=== PATIENT | female | born 1955 | race Caucasian/White ===

== ENCOUNTER 2020-05-18 21:14 | Outpatient (REF) | payer BC, SELFPAY ==
[2020-05-18 20:23] LABS: ALT 11 U/L (14-59); AST 19 U/L (15-37); Calculated LDL 76 mg/dL (<100); Cholesterol 143 mg/dL (<200); HDL Cholesterol 47 mg/dL (40-60); Triglyceride 100 mg/dL (<150)
== END 2020-05-18 21:34 ==
LOC: NCHCN 21:14
PROVIDERS: PCP Internal Medicine; Visit Provider Nurse Practitioner Family
DX: E78.5 Hyperlipidemia, unspecified (principal)
CPT/HCPCS: 80061; 84450; 84460

== ENCOUNTER 2021-01-16 20:09 | Outpatient (REF) | payer BC, SELFPAY ==
[2021-01-16 19:25] LABS: Anion Gap 8.6 mmol/L (3-11); BUN 9 mg/dL (7-18); CO2 27.4 mmol/L (21.0-32.0); Calcium 8.5 mg/dL (8.5-10.1); Chloride 107 mmol/L (98-107); Estimated GFR 55.47 (mL/min/1.73m2); Glucose 119 mg/dL (74-106); Potassium 4.1 mmol/L (3.5-5.1); Sodium 143 mmol/L (136-145)
== END 2021-01-16 20:10 | disposition home or self-care (01) ==
LOC: NCHCN 20:09
PROVIDERS: PCP Internal Medicine; Visit Provider Nurse Practitioner Family
DX: Z02.89 Encounter for other administrative examinations (principal); M17.0 Bilateral primary osteoarthritis of knee; G89.29 Other chronic pain
CPT/HCPCS: 80048

== ENCOUNTER 2022-04-02 15:22 | Outpatient (REF) | payer MEDICARE, SELFPAY ==
[2022-04-02 19:43] LABS: ALT 17 U/L (14-59); AST 19 U/L (15-37); Albumin 3.6 g/dL (3.4-5.0); Alkaline Phosphatase 82 U/L (46-116); Anion Gap 7.9 mmol/L (3-11); BUN 15 mg/dL (7-18); Bilirubin, Total 0.3 mg/dL (0.2-1.0); CO2 27.1 mmol/L (21.0-32.0); CREATININE 0.9 mg/dL (0.55-1.02); Calcium 8.7 mg/dL (8.5-10.1); Chloride 105 mmol/L (98-107); Estimated GFR 70.07 (mL/min/1.73m2); Glucose 91 mg/dL (74-106); Sodium 140 mmol/L (136-145); Total Protein 7.2 g/dL (6.4-8.2)
== END 2022-04-02 15:23 | disposition home or self-care (01) ==
LOC: NCHCN 15:22
PROVIDERS: PCP Internal Medicine; Visit Provider Nurse Practitioner Family
DX: E78.5 Hyperlipidemia, unspecified (principal)
CPT/HCPCS: 80053

== ENCOUNTER 2022-11-04 09:55 | Day surgery (SDC) | payer MEDICARE, SELFPAY ==
--- NOTE | 2022-11-04 07:02 | W.PREOPHP ---
Assessment and Plan Assessment and plan (1) Posterior subcapsular age-related cataract, right eye: Status: Acute Assessment and plan: Assessment: Dense nuclear/posterior subcapsular cataract, right eye. Plan: Cataract extraction with lens implantation of the right eye. (2) Nuclear age-related cataract, right eye: Status: Acute Assessment and plan: Assessment: Dense nuclear/posterior subcapsular cataract, right eye. Plan: Cataract extraction with lens implantation of the right eye. History of Present Illness History of Present Illness Chief Complaint: Progressive decreased vision, right eye Narrative: The patient is a 65-year-old lady with history of progressive decreased vision in her right thigh, much worse than the left. She notes decreased vision at both distance and near. On examination she was noted to have a dense nuclear/posterior subcapsular cataract in the right eye with counting fingers vision. The option of cataract surgery was offered to the patient and she wished to proceed. Review of Systems All systems reviewed & are unremarkable except as noted in HPI and below PFSH All Active Problems Nuclear age-related cataract, right eye (Acute) Posterior subcapsular age-related cataract, right eye (Acute) Medical History Bilateral cataracts Chronic knee pain COPD (chronic obstructive pulmonary disease) Depression HLD (hyperlipidemia) Smoker Surgical History (Updated 11/04/22 @ 10:35 by Dulce Lo) History of dacryocystorhinostomy [facility] Social History Smoking/Tobacco Use Status: Current every day Tobacco Type: cigarettes Tobacco: How many years used: 50 Smoking risk assessment performed?: Yes Alcohol Intake: never Drug use: Never Substance use type: does not use Do you feel safe at home: Yes Do you feel safe in your relationship?: Yes Meds Allergies and Home Medications Allergies Allergy/AdvReac Type Severity Reaction Status Date / Time No Known Allergies Allergy Unverified 11/04/22 10:36 Home Medications Medication Instructions Recorded Confirmed Type atorvastatin 10 mg tablet 10 mg PO HS 04/11/22 11/04/22 History citalopram 40 mg tablet 40 mg PO HS 04/11/22 11/04/22 History ibuprofen 600 mg tablet 600 mg PO DAILY PRN 04/11/22 11/04/22 History tiotropium bromide 18 mcg capsule 1 cap inhalation DAILY 04/11/22 11/04/22 History with inhalation device (Spiriva with HandiHaler) hydrocodone 5 mg-acetaminophen 325 1 tab PO DIRECTED PRN 11/01/22 11/04/22 History mg tablet Exam Eyes Other: Most recent ocular examination revealed uncorrected visual acuity of counting fingers OD, 20/50 OS. Extraocular motility is normal. Slit-lamp examination reveals pupils dilating only to 3.5 mm. There is a dense nuclear/posterior subcapsular cataract in the right eye with no view of the retina. In the left eye there is a moderate nuclear and posterior subcapsular cataract. Funduscopic examination of the left eye reveals disc cupping of 0.3 with normal vessels, macula, peripheral retina and vitreous. Resp Auscultation: clear to auscultation bilaterally Cardio Rate: regular rate Rhythm: regular rhythm
[2022-11-04 09:42] VITALS: BMI 35.4
--- NOTE | 2022-11-04 09:42 | W.ANESPRE ---
General Info Date of Service Date Performed: 11/04/22 Height: 5 ft 2 in Weight: 87.997 kg Body Mass Index (BMI): 35.4 Surgical Procedure: Operation Date: 11/04/22 11:25 Proposed Procedure Side Surgeon p Cataract Extraction with IOL Implant Right Daren Alexis MD Meds Allergies and Home Medications Allergies Allergy/AdvReac Type Severity Reaction Status Date / Time No Known Allergies Allergy Unverified 09/27/22 08:55 Home Medication Medication Instructions Recorded atorvastatin 10 mg tablet 10 mg PO DAILY 04/11/22 citalopram 40 mg tablet 40 mg PO DAILY 04/11/22 ibuprofen 600 mg tablet 600 mg PO DAILY PRN 04/11/22 tiotropium bromide 18 mcg capsule 1 cap inhalation DAILY 04/11/22 with inhalation device (Spiriva with HandiHaler) hydrocodone 5 mg-acetaminophen 325 1 tab PO DIRECTED 11/01/22 mg tablet Current Visit Medications: Current Medications Generic Name Dose Route Start Last Admin Trade Name Freq PRN Reason Stop Dose Admin Acetaminophen 1,000 mg 11/04/22 06:00 Acetaminophen 500 Mg Tab PO Q4H PRN PRN Balanced Salt Solution 500 ml 11/04/22 06:00 Balanced Salt Soln.-Plus 500 Ml Bag OP DIRECTED [facility] Miscellaneous Medication 0 ml 11/04/22 06:00 Prednisolone 1%, Moxifloxacin 0.5%, Nepafenac 0.1% 5ml Btl OD DIRECTED [facility] Miscellaneous Medication 0 ml 11/04/22 06:00 Tropicam./Phenyleph. (1/2.5%) 5 Ml Btl OD DIRECTED [facility] Tetracaine HCl 0 ml 11/04/22 06:00 Tetracaine 0.5% 4 Ml Btl OD DIRECTED [facility] PFSH Active Problems Active Problems: Problem Status Onset Code Posterior subcapsular age-related cataract, right eye H25.041 Nuclear age-related cataract, right eye H25.11 Medical History Medical History Bilateral cataracts Chronic knee pain COPD (chronic obstructive pulmonary disease) Depression HLD (hyperlipidemia) Smoker Tobacco Smoking/Tobacco Use Status: Current every day Tobacco Type: cigarettes Alcohol Alcohol Intake: never Substance Use Substance use: Never Substance use type: does not use Vital Signs and Lab Results Lab Results Blood Type / Crossmatch: No Data to Display Complete Blood Count: No Data to Display Complete Metabolic Panel: No Data to Display Liver Function Panel: No Data to Display Coagulation Panel: No Data to Display Cardiac Panel: No Data to Display Arterial Blood Gas: No Data to Display Venous Blood Gas: No Data to Display Pancreas Panel: No Data to Display Thyroid Panel: No Data to Display Infectious Disease: No Data to Display Blood Cultures: No Data to Display Toxicology Panel: No Data to Display Anesthesia Assessment and Plan Anesthesia History Personal History: No History of Anesthesia Complications Family History: No Family History of Anesthesia Complications Exercise Tolerance Exercise Tolerance: Metabolic Equivalents>4 Pertinent Negatives Pertinent Negatives: No Symptoms of GERD, No Major Cardiovascular Symptoms or Complaints and No History of CVA/TIA Cardiac & Pulmonary Exam Cardiac Exam: Normal S1/S2 Heart Sounds Pulmonary Exam: Clear Bilateral Breath Sounds Implantable Cardiac Device Does patient have a Pacemaker or an ICD?: No Airway Exam Known Difficult Airway: No Mallampati Class: 2 Mouth Opening: Normal (> 3cm) Thyromental Distance: Greater than 3 cm Neck Range of Motion: Full ROM Neck Circumference: Normal Teeth Condition: Generalized Poor Dentition, Loose or Chipped and Dental Caries ASA Classification ASA Score: ASA 3 Emergency Case?: No NPO Status NPO Status: Full Stomach (Patient drinking water up until an hour ago per patient. ) Anesthesia Plan Resuscitation Status: Full Code Anesthesia Technique: MAC Anesthesia Airway Planned: Natural Airway Monitors Used: Standard Monitors Preoperative Comments:: Sig PMhx: COPD, current smoker Plan: Patient local as was sipping water up until arrival/an hour ago. Potential for PIV placement and IV versed if patient beyond two hour window and no concerns.
[2022-11-04 10:00] VITALS: BP 116/72; PULSE 72; RESP 16; TEMP 36.4; O2SAT 97
[2022-11-04] MEDS: Tropicam./Phenyleph. (1/2.5%) 5 ML BTL OD ×3 (10:33→10:45)
[2022-11-04] MEDS: Tetracaine 0.5% 4 ML BTL OD (11:00)
[2022-11-04] MEDS: Trypan Blue 0.06% 0.5 ML SYR (11:07)
[2022-11-04] MEDS: Balanced Salt Soln.-PLUS 500 ML BAG OP (11:07)
[2022-11-04] MEDS: Duovisc Viscoelastic System EACH 1 EACH (11:08)
[2022-11-04] MEDS: Lidocaine 1% Pres-Free 5 ML VIAL (11:09)
[2022-11-04] MEDS: Phenylephrine/Lidocaine (15/10) MG/ML 1 ML VIAL (11:09)
[2022-11-04] MEDS: Povidone-Iodine Ophth 30 ML BTL (11:10)
[2022-11-04 11:40] VITALS: BP 121/65; PULSE 57; RESP 16; TEMP 36.6; O2SAT 95
--- NOTE | 2022-11-04 11:41 | W.PM.DSUDISC ---
Date of service: 11/04/22 Time of Service: 11:41 Discharge Plan Disposition Patient Disposition: Home Discharge Details Attending Provider: Daren Alexis Primary Care Provider: Shaun Hensley Meds and New Rx's Prescriptions: No Action citalopram 40 mg Tablet 40 mg PO HS atorvastatin 10 mg Tablet 10 mg PO HS ibuprofen 600 mg Tablet 600 mg PO DAILY PRN Spiriva with HandiHaler 18 mcg Capsule, W/Inhalation Device 1 cap INHALATION DAILY hydrocodone-acetaminophen 5-325 mg Tablet 1 tab PO DIRECTED PRN Discharge Instructions Stand Alone Forms: Post-op Topical Cataract, Allie Martin (DSU) Discharge Orders Discharge Orders: Discharge Order (Routine); Ordered 11/04/22 Ordered By: Daren Alexis DS: Diagnosis Discharge Diagnosis (1) Posterior subcapsular age-related cataract, right eye: Status: Resolved (2) Nuclear age-related cataract, right eye: Status: Resolved
--- NOTE | 2022-11-04 11:44 | W.PM.OP ---
Date of service: 11/04/22 Time of Service: 11:44 Operative Note Operative Note DATE OF PROCEDURE: 11/04/22 PRE-OP DIAGNOSIS: Dense nuclear/posterior subcapsular cataract, right eye Poorly dilating pupil, right eye Absent red reflex, right eye PROCEDURE: Cataract extraction using phacoemulsification with intraocular lens implant, left eye, with pupillary dilation using Malyugin Ring and capsular staining using Vision Blue SURGEON: Daren Alexis ANESTHESIA TYPE: Local By Surgeon and MAC Refer to Anesthesia Record ESTIMATED BLOOD LOSS: 0 PATHOLOGY: none sent COMPLICATIONS: None Patient was transported to: same day Patient's condition: stable Implants: Babak [employer] Babak [employer] Tecnis Eyhance DIB00 Indications: Progressive decreased vision due to cataract, left eye Procedure Description: CATARACT SURGERY OPERATIVE REPORT PREOPERATIVE DIAGNOSIS: 1. Dense nuclear/posterior subcapsular cataract, left eye 2. Poorly dilating pupil, left eye 3. Poor red reflex, left eye POSTOPERATIVE DIAGNOSIS: Same OPERATION: 1. Cataract extraction using phacoemulsification with posterior chamber intraocular lens implant, left eye. 2. Pupillary dilation and iris stabilization using Malyugin Ring 3. Capsular staining with VIsion Blue IOL: IOL Inspector And Sorter/Model: Babak & Babak / JADA Tecnis [id number] IOL Power: + 19.5 diopters IOL Serial Number: [id number] Optic Diameter: 6.0mm Haptic/Overall Diameter: 13.0mm PHACO INFO: Enio Centurion Vision System with OZil and Active Fluidics Cumulative Dispersed Energy (CDE): 34.21 seconds SURGEON: Daren Alexis MD, GRACIELA ANESTHESIA: Monitored Anesthesia Care (MAC), with local sub-tenon's anesthetic infiltration COMPLICATIONS: None SPECIMENS: None INDICATIONS FOR PROCEDURE: The patient is a 66-year-old lady with history of diminished visual acuity in her right eye secondary to the development of dense nuclear/posterior subcapsular cataract. She was seen in October 2021 with counting fingers vision in the right eye. She now presents for cataract surgery in the right eye. See office notes for detailed information. PROCEDURE: The correct surgical eye was identified and marked as the left eye and the pupil was dilated in the preoperative area using mydriatics, cycloplegics, and NSAIDS (except in aspirin allergic patients). The dilated pupil size was 3.5 mm. The patient was brought to the operating room where cardiopulmonary monitoring was instituted and surgical time-out was performed, confirming the correct operative eye and IOL power. Topical anesthesia was administered and ophthalmic povidone-iodine 5% was instilled into the conjunctival fornices. Lidocaine gel was applied to the cornea and the prince-ocular area was prepped with Betadine 10% solution and draped in the usual sterile fashion for intraocular surgery, including an aperture drape. A Tegaderm transparent film dressing was cut in half and used to cover the lashes and lid margins. Care was taken to sequester the lashes and lid margins under the Tegaderm dressing. A lid speculum was placed between the lids of the operative eye and the operating microscope was maneuvered into position. Michelle scissors were then used to make a conjunctival buttonhole approximately 6mm posterior to the limbus in the inferonasal quadrant. Blunt dissection was carried out to expose bare sclera, and a blunt-tipped sub-tenon?s anesthesia cannula was introduced and passed posteriorly along the globe where non-preserved plain lidocaine was injected into posterior sub-Tenon?s space. A sideport knife was used to make a paracentesis port superiorly/superiortemporally. Intraocular phenylephrine/lidocaine was injected into the anterior chamber. . The anterior chamber was then filled with Provisc viscoelastic. A 2.6mm keratome knife was used to create a half-thickness groove at the limbus and then to construct a three-plane near-clear corneal tunnel extending 2.0mm into clear cornea temporally. A 6.25 mm Malyugin Ring was then inserted into the pupillary space and engaged with the Kuglen hook. The Provisc was then removed from the anterior chamber using irrigation/aspiration. VisionBlue was then injected into the anterior chamber and allowed to sit for 20 to 30 seconds, after which it was irrigated out with balanced salt solution. A flap was raised on the anterior capsule and capsulorhexis forceps were used to complete a continuous curvilinear capsulorhexis of 5.0 mm. The eye had to be fixated due to constant eye movement. Balanced salt solution was then used to perform cortical cleaving hydrodissection and nuclear hydrodelineation until the lens could be freely rotated within the capsular bag. The lens nucleus was then disassembled and removed within the capsular bag and iris plane using phacoemulsification. A deep central trench was sculpted into the central nucleus, then rotated 180 degrees in the trench lengthened. The nucleus was cracked into 2 halves, and then each have chopped into smaller fragments. Additional Viscoat was used intermittently to protect the corneal endothelium. Residual cortical material was removed using the 45-degree angled silicone I/A tip with 0.3mm port. The posterior capsule was carefully polished to remove as much residual lens epithelial cells as safely possible. The capsular bag was then inflated and the anterior chamber deepened with viscoelastic. The lens implant described above was inserted into the capsular bag using the [employer] simplicity injector. A Kuglen hook was used to dial the IOL into position. The Malyugin Ring was removed in the reverse order of its insertion. Residual viscoelastic was then removed first from posterior to the IOL, then from the anterior chamber using the I/A handpiece. The lens implant was noted to center nicely within the capsular bag. The incisions were stromally hydrated, and the anterior chamber was reformed using BSS. Then 0.5cc of moxifloxacin 1.0mg/ml were injected into the capsular bag and anterior chamber. The incisions were checked with a Weck spear and found to be secure. Several drops of ophthalmic povidone-iodine 5% were then applied to the eye followed by two drops of Imprimis combination prednisolone/moxifloxacin/nepafenac solution. The drapes were removed and a clear plastic protective eye shield was placed over the eye. The patient was then returned to Same Day Surgery in stable condition.
--- NOTE | 2022-11-04 11:46 | W.ANESPOSTOP ---
Postoperative Evaluation Date, Time and Location Date Performed: 11/04/22 Time Performed: 11:46 Patient Location: Day Surgery Unit Vital Signs Most Recent Imported Vital Signs: Most Recent Vital Signs Temp Pulse Resp BP Pulse Ox 36.4 C L 72 16 116/72 97 11/04/22 10:00 11/04/22 10:00 11/04/22 10:00 11/04/22 10:00 11/04/22 10:00 Pain Score Most Recent Pain Score: Most Recent Pain Score Pain Level 0 11/04/22 10:00 Assessment Mental Status: Awake (Alert & Oriented to Patient Baseline) Airway and Respiratory Function: Patent airway with normal (patient baseline) respiratory exam Cardiovascular Function: Hemodynamically Stable Hydration Status: Adequately Hydrated Nausea & Vomiting: No Nausea or Vomiting Pain: Pt. Denies Any Pain Peripheral Nerve Block: Other (Local by Dr. Alexis)
--- NOTE | 2022-11-08 13:25 | W.PM.OP ---
Date of service: 11/04/22 Time of Service: 11:44 Operative Note Operative Note DATE OF PROCEDURE: 11/04/22 PRE-OP DIAGNOSIS: Dense nuclear/posterior subcapsular cataract, right eye Poorly dilating pupil, right eye absent red reflex, right eye POST-OP DIAGNOSIS: same PROCEDURE: [employer]ak [employer] Babak / [employer] Tecnis Eyhance DIB00 Pupillary dilation using pupillary expansion device Capsular staining with VisionBlue SURGEON: Daren Alexis ANESTHESIA TYPE: Local By Surgeon and MAC Refer to Anesthesia Record ESTIMATED BLOOD LOSS: 0 PATHOLOGY: none sent COMPLICATIONS: None Patient was transported to: same day Patient's condition: stable Implants: Babak [employer] Babak / [employer] Tecnis Eyhance DIB00 Indications: Progressive visual loss due to cataract, right eye Procedure Description: CATARACT SURGERY OPERATIVE REPORT PREOPERATIVE DIAGNOSIS: 1. Dense nuclear/posterior subcapsular cataract, right eye 2. Poorly dilating pupil, right eye 3. Red reflex, right eye POSTOPERATIVE DIAGNOSIS: Same OPERATION: 1. Cataract extraction using phacoemulsification with posterior chamber intraocular lens implant, right eye. 2. Pupillary dilation and iris stabilization using pupillary expansion device 3. Capsular staining with VisionBlue IOL: IOL Water/Wastewater Project Manager/Model: Babak & Babak Tecnis Eyhance DIB00 IOL Power: + 19.5 diopters IOL Serial Number: [id number] Optic Diameter: 6.0mm Haptic/Overall Diameter: 13.0mm PHACO INFO: Enio [employer]ion Vision System with OZil and Active Fluidics Cumulative Dispersed Energy (CDE): 34.21 seconds SURGEON: Daren Alexis MD, GRACIELA ANESTHESIA: Monitored Anesthesia Care (MAC), with local sub-tenon's anesthetic infiltration COMPLICATIONS: None SPECIMENS: None INDICATIONS FOR PROCEDURE: The patient is a 66-year-old lady with history of diminished visual acuity in her right eye secondary to the development of dense nuclear/posterior subcapsular cataract. She was seen in October 2021 with counting fingers vision in the right eye. She now presents for cataract surgery in that eye. See office notes for detailed information. PROCEDURE: The correct surgical eye was identified and marked as the right eye and the pupil was dilated in the preoperative area using mydriatics and cycloplegics. The dilated pupil size was 3.5 mm. . The patient was brought to the operating room where cardiopulmonary monitoring was instituted and surgical time-out was performed, confirming the correct operative eye and IOL power. Topical anesthesia was administered and ophthalmic povidone-iodine 5% was instilled into the conjunctival fornices. The prince-ocular area was prepped with Betadine 10% solution and draped in the usual sterile fashion for intraocular surgery, including an aperture drape. A Tegaderm transparent film dressing was cut in half and used to cover the lashes and lid margins. Care was taken to sequester the lashes and lid margins under the Tegaderm dressing. A lid speculum was placed between the lids of the operative eye and the Enio [employer] Rev[employer] operating microscope was maneuvered into position. Michelle scissors were then used to make a conjunctival buttonhole approximately 6mm posterior to the limbus in the inferonasal quadrant. Blunt dissection was carried out to expose bare sclera, and a blunt-tipped sub-tenon?s anesthesia cannula was introduced and passed posteriorly along the globe where non-preserved plain lidocaine was injected into posterior sub-Tenon?s space. A sideport knife was used to make a paracentesis port inferotemporally. Intraocular phenylephrine/lidocaine was injected into the anterior chamber. The anterior chamber was filled with cohesive viscoelastic. A 2.6 mm keratome knife was then used to create a half thickness groove at the limbus and to construct a 3 plane clear corneal tunnel extending 2.0 mm into clear cornea superior temporally. A 6.25mm Malyugin RIng was then inserted into the pupillary space and engaged with the Kuglen hook. The irrigation/aspiration handpiece was then used to remove the Provisc from the anterior chamber. VisionBlue was then injected into the anterior chamber and allowed to sit on the anterior capsule for 20 to 30 seconds, after which it was irrigated out with balanced salt solution. Viscoat was then used to fill the anterior chamber. A cystotome was used to raise a flap on the anterior capsule and capsulorhexis forceps were then used to complete a continuous curvilinear capsulorhexis of 5.0 mm. The eye had to be fixated with a second instrument due to constant movement. Balanced salt solution was then used to perform cortical cleaving hydrodissection and nuclear hydrodelineation until the lens could be freely rotated within the capsular bag. The lens nucleus was then disassembled and removed within the capsular bag and iris plane using phacoemulsification. A deep central trench was sculpted into the nucleus, which was then rotated 180 degrees and the trench was continued. The nucleus was cracked into 2 halves and then each have was chopped into smaller fragments. Additional Viscoat was used intermittently to protect the corneal endothelium. Residual cortical material was removed using the I/A handpiece. The posterior capsule was carefully polished to remove as much residual lens epithelial cells as safely possible. The capsular bag was then inflated and the anterior chamber deepened with viscoelastic. The lens implant described above was inserted into the capsular bag using the Babak and [employer] pre-loaded injector. A Kuglen hook was used to dial the IOL into position. The Malyugin Ring was then moved in the reverse order of its insertion. Residual viscoelastic was then removed first from posterior to the IOL, then from the anterior chamber using the I/A handpiece. The lens implant was noted to center nicely within the capsular bag. The incisions were stromally hydrated, and the anterior chamber was reformed using BSS. Then 0.5cc of moxifloxacin 1.0mg/ml were injected into the capsular bag and anterior chamber. The incisions were checked with a Weck spear and found to be secure. Several drops of ophthalmic povidone-iodine 5% were then applied to the eye followed by two drops of Imprimis combination prednisolone/moxifloxacin/nepafenac solution. The drapes were removed and a clear plastic protective eye shield was placed over the eye. The patient was then returned to Same Day Surgery in stable condition.
== END 2022-11-04 12:00 | disposition home or self-care (01) ==
LOC: SUR 09:56
PROVIDERS: PCP Internal Medicine; Visit Provider Ophthalmology
PROC: (CPT 66982; principal; 2022-11-04 11:15)
DX: H25.041 Posterior subcapsular polar age-related cataract, right eye (principal); H25.11 Age-related nuclear cataract, right eye; F17.210 Nicotine dependence, cigarettes, uncomplicated
CPT/HCPCS: 66982; V2632

== ENCOUNTER 2023-05-26 22:25 | Outpatient (REF) | payer MEDICARE, SELFPAY ==
[2023-05-26 19:06] LABS: ALT 19 U/L (14-59); AST 20 U/L (15-37); Albumin 3.3 g/dL (3.4-5.0); Alkaline Phosphatase 89 U/L (46-116); Anion Gap 8.9 mmol/L (3-11); BUN 16 mg/dL (7-18); Bilirubin, Total 0.5 mg/dL (0.2-1.0); CO2 27.1 mmol/L (21.0-32.0); CREATININE 1.1 mg/dL (0.55-1.02); Calcium 8.8 mg/dL (8.5-10.1); Chloride 106 mmol/L (98-107); Estimated GFR 54.73 (mL/min/1.73m2); Glucose 117 mg/dL (74-106); Potassium 3.4 mmol/L (3.5-5.1); Sodium 142 mmol/L (136-145); Total Protein 7.1 g/dL (6.4-8.2)
--- OUTSIDE RECORDS SUMMARY | 2023-05-26 22:26 | XMS_ITS | Continuity of Care Document ---
Author Name Unknown Organization [facility] Address [address] [place] [address] Care Team Providers Care Advanced Practice Registered Nurse Name Role Phone Tamara Mcghee Primary Care Physician Encounter [facility] Date(s): 06/13/22 - 06/13/22 [facility] [address] [place] [address] Discharge Disposition: Home or Self Care Attending Physician: Tamara Mcghee APPLIED COMPUTER SCIENCE PROFESSOR Admitting Physician: Tamara Mcghee APPLIED COMPUTER SCIENCE PROFESSOR Referring Physician: Tamara Mcghee APPLIED COMPUTER SCIENCE PROFESSOR Allergies, Adverse Reactions, Alerts No Known Medication Allergies Assessment and Plan Future Scheduled Tests Laboratory* Surgical Pathology [facility] 01/31/22 Medications atorvastatin 10 mg oral tablet 0 Refill(s) Start Date: 01/18/22 Status: Ordered citalopram 40 mg oral tablet 0 Refill(s) Start Date: 01/18/22 Status: Ordered erythromycin 0.5% ophthalmic ointment 0 Refill(s) Start Date: 01/18/22 Status: Ordered HYDROcodone-acetaminophen 5 mg-325 mg oral tablet 1 tab, Oral, every 4 hr, PRN as needed for pain, 0 Refill(s) Start Date: 01/18/22 Status: Ordered ibuprofen 800 mg oral tablet 0 Refill(s) Start Date: 01/18/22 Status: Ordered Spiriva HandiHaler 18 mcg inhalation capsule 0 Refill(s) Start Date: 01/18/22 Status: Ordered Problem List Condition Confirmation Course Effective Dates Status H ealth Status Informant Bilateral cataracts Confirmed Active COPD without exacerbation Confirmed Active Chronic pain Confirmed Active Cystitis Confirmed Active Dacryocystitis Confirmed Active Depression Confirmed Active Blood glucose elevated Confirmed Active Hyperlipemia Confirmed Active Idiopathic osteoarthritis Confirmed Active Skin lesion of face Confirmed Active Opioid dependence Confirmed Active DJD (degenerative joint disease) Confirmed Active Knee pain Confirmed Active Tobacco use Confirmed Active Social History Social History Type Response Sex Female Patient Care team information Personnel Name: Tamara Mcghee APPLIED COMPUTER SCIENCE PROFESSOR Address: Address: [address] [place] [phone]
== END 2023-05-26 22:26 | disposition home or self-care (01) ==
LOC: NCHCN 22:25
PROVIDERS: PCP Internal Medicine; Visit Provider Nurse Practitioner Family
DX: E78.5 Hyperlipidemia, unspecified (principal); G89.29 Other chronic pain
CPT/HCPCS: 80053; 80307

== ENCOUNTER 2023-08-28 15:03 | Outpatient (REF) | payer MEDICARE, SELFPAY ==
[2023-08-28 19:14] LABS: Anion Gap 7.6 mmol/L (3-11); BUN 16 mg/dL (7-18); CO2 28.4 mmol/L (21.0-32.0); CREATININE 1.1 mg/dL (0.55-1.02); Calcium 8.7 mg/dL (8.5-10.1); Chloride 109 mmol/L (98-107); Estimated GFR 54.73 (mL/min/1.73m2); Glucose 107 mg/dL (74-106); Potassium 3.9 mmol/L (3.5-5.1); Sodium 145 mmol/L (136-145)
== END 2023-08-28 15:04 | disposition home or self-care (01) ==
LOC: NCHCN 15:03
PROVIDERS: PCP Internal Medicine; Visit Provider Nurse Practitioner Family
DX: R79.89 Other specified abnormal findings of blood chemistry (principal)
CPT/HCPCS: 80048

== ENCOUNTER 2024-07-06 13:28 | Outpatient (REF) | payer MEDICARE, SELFPAY ==
[2024-07-06 19:42] LABS: ALT 14 U/L (14-59); AST 27 U/L (15-37); Albumin 3.4 g/dL (3.4-5.0); Alkaline Phosphatase 92 U/L (46-116); BUN 15 mg/dL (7-18); Bilirubin, Total 0.53 mg/dL (0.2-1.0); CREATININE 1.1 mg/dL (0.55-1.02); Calcium 8.8 mg/dL (8.5-10.1); Calculated LDL 93 mg/dL (<100); Chloride 108 mmol/L (98-107); Cholesterol 176 mg/dL (<200); Estimated GFR 54.39 (mL/min/1.73m2); Glucose 103 mg/dL (74-106); HDL Cholesterol 59 mg/dL (40-60); Potassium 4.2 mmol/L (3.5-5.1); Sodium 143 mmol/L (136-145); Triglyceride 120 mg/dL (<150)
== END 2024-07-06 13:29 | disposition home or self-care (01) ==
LOC: NCHCN 13:28
PROVIDERS: PCP Internal Medicine; Visit Provider Nurse Practitioner Family
DX: E78.5 Hyperlipidemia, unspecified (principal)
CPT/HCPCS: 80053; 80061

== ENCOUNTER 2024-10-04 14:27 | Outpatient (REF) | payer MEDICARE, SELFPAY ==
[2024-10-09 12:50] LABS: Hydrocodone Interpretation Positive.; Hydrocodone by LC-MS/MS 589 ng/mL (Cutoff: 25); Hydromorphone by LC-MS/MS 43 ng/mL (Cutoff: 25); Norhydrocodone by LC-MS/MS 354 ng/mL (Cutoff: 25)
== END 2024-10-04 14:28 | disposition home or self-care (01) ==
LOC: NCHCN 14:27
PROVIDERS: PCP Internal Medicine; Visit Provider Nurse Practitioner Family
DX: G89.29 Other chronic pain (principal); Z79.891 Long term (current) use of opiate analgesic
CPT/HCPCS: 80361